=== PATIENT | male | born 1965 | race Hispanic/Latino ===

== ENCOUNTER 2018-10-04 12:11 | Emergency (ER) | payer OTHER ==
[~2018-10-04] VITALS: Ht 162.6 cm; Wt 70.0 kg
[2018-10-04] MEDS ORDERED: KEFLEX500 M1 PO (13:10)
[2018-10-04 13:14] VITALS: BP 125/81
== END 2018-10-04 13:14 | disposition home or self-care (01) | DRG 605 ==
LOC: ED 12:11
DX: S71.112A Laceration without foreign body, left thigh, initial encounter (principal); W11.XXXA Fall on and from ladder, initial encounter; Y93.89 Activity, other specified; Y92.74 Orchard as the place of occurrence of the external cause; Y99.0 Civilian activity done for income or pay